=== PATIENT | female | born 1955 | race Caucasian/White ===

== ENCOUNTER 2021-04-13 16:40 | Emergency (ER) | payer OTHER ==
[~2021-04-13] VITALS: Ht 162.6 cm; Wt 56.2 kg
--- NOTE | 2021-04-13 17:00 | NUR ---
Pt made aware of plan of care. O2 at 2L to keep sats >92
[2021-04-13 17:48] LABS: BASOPHILS % (AUTO) 0.1 % (0.0-2.0); HEMATOCRIT 41 % (33-45); HEMOGLOBIN 14.1 g/dL (11.5-14.8); LYMPHOCYTES # (AUTO) 0.7 K/uL (0.8-4.8); LYMPHOCYTES % (AUTO) 5.2 % (20.0-44.0); MEAN CORPUSCULAR HGB CONC 35 g/dl (31.0-36.0); MEAN CORPUSCULAR VOLUME 91 fL (82-100); MONOCYTES % (AUTO) 7.5 % (2.0-12.0); NEUTROPHILS # (AUTO) 11.5 K/uL (1.8-8.9); NEUTROPHILS % (AUTO) 87.2 % (43.0-81.0); PLATELET COUNT (AUTO) 246 K/uL (150-450); RED BLOOD CELL COUNT(AUTO) 4.44 MIL/uL (4.0-5.2); WHITE BLOOD COUNT (AUTO) 13.2 K/uL (4.3-11.0)
[2021-04-13 18:03] LABS: CALCIUM, SERUM 8.8 mg/dL (8.5-10.1); CARBON DIOXIDE 25 mmol/L (21-32); CHLORIDE 101 mmol/L (98-107); CREATININE 0.5 mg/dL (0.6-1.3); GLUCOSE 94 mg/dL (74-106); POTASSIUM 3.8 mmol/L (3.5-5.1); SODIUM SERUM 138 mmol/L (136-145); UREA NITROGEN, BLOOD 14 mg/dL (7-18)
[2021-04-13 18:11] LABS: D-DIMER 0.52 mg/L(FEU (0.17-0.50)
[2021-04-13 18:16] LABS: ALANINE AMINOTRANSFERASE 125 U/L (12-78); ALBUMIN 3.2 g/dL (3.4-5.0); ALKALINE PHOSPHATASE 57 U/L (46-116); ASPARTATE AMINOTRANSFERASE 32 U/L (15-37); BILIRUBIN,TOTAL 0.6 mg/dL (0.2-1.0); TOTAL PROTEIN, SERUM 7.4 g/dL (6.4-8.2)
[2021-04-13] MEDS ORDERED: PRED20TA PO (18:18)
[2021-04-13] MEDS ORDERED: BENZ-13 PO (18:18)
[2021-04-13] MEDS ORDERED: ONDA4TAB11 PO (18:18)
[2021-04-13] MEDS ORDERED: ALBU8.5H8 IH (18:18)
[2021-04-13] MEDS ORDERED: CARB15DR EACHEYE (18:18)
[2021-04-13 18:21] LABS: C-REACTIVE PROTEIN 8.8 mg/dL (0.0-0.9); FERRITIN 389 ng/mL (8-388)
[2021-04-13] MEDS ORDERED: AZIT250T PO (19:07)
[2021-04-13] MEDS ORDERED: GUAI-671 PO (19:07)
[2021-04-13] MEDS ORDERED: PRED50TA PO (19:07)
--- NOTE | 2021-04-13 19:52 | NUR ---
JENNIFER JACK DONE AND SENT TO LAB
[2021-04-13 19:53] VITALS: BP 118/68
--- NOTE | 2021-04-16 02:02 | NUR ---
CALL FROM LAB. COVID +
== END 2021-04-13 19:54 | disposition home or self-care (01) ==
LOC: ER 16:46
DX: U07.1 COVID-19 (principal); J12.82 Pneumonia due to coronavirus disease 2019
CPT/HCPCS: 71045; 80053; 82728; 83605; 83615; 83880; 84145; 84484; 85025; 85378; 85385; 85730; 86140; 87040 ×2; 87081; 93005; 99285; U0003; 36415; C9803